=== PATIENT | female | born 1970 | race American Indian/Alaskan Native ===

== ENCOUNTER 2021-05-03 20:01 | Emergency (ER) | payer MEDICAID ==
[2021-05-04] MEDS ORDERED: KETOROLAC 60 MG/2 ML INJ IM STA (00:10)
--- NOTE | 2021-05-04 01:07 | Emergency Department Report ---
ED General Adult HPI - General Chief complaint: Extremity Problem,Nontraumatic Stated complaint: RT ARM PAIN PUI?: No Time Seen by Provider: 05/04/21 00:10 Source: patient Mode of arrival: Ambulatory Limitations: No Limitations - History of Present Illness Initial comments: 50-year-old female presents to the emergency department complaining of a 2 to 3-day history of atraumatic progressively worsening right arm/shoulder pain which started after she had woken up. She initially thought she may have slept on her shoulder wrong but Tylenol and Motrin did not resolve the symptoms and symptoms began to worsen with various movement and range of motion. Reports no discoloration, numbness or tingling no fever chills or sweats. -: days(s) (2) Location: upper extremity (Right shoulder) Radiation: non-radiation Severity scale (0 -10): 10 Quality: aching, dull Consistency: constant Improves with: none Worsens with: movement Associated Symptoms: denies: chest pain, cough, diaphoresis, loss of appetite, nausea/vomiting, shortness of breath, syncope, weakness Treatments Prior to Arrival: none - Related Data Home Medications Medication Instructions Recorded Confirmed Last Taken Insulin Glargine,Hum.rec.anlog 5 unit SQ QHS 12/03/13 12/03/13 12/02/13 22:00 [Lantus Solostar] Lisinopril/Hydrochlorothiazide 1 tab PO QDAY 12/03/13 12/03/13 12/02/13 22:00 [Zestoretic 20-12.5 mg] Metformin HCl [Fortamet] 1,000 mg PO BID 12/03/13 12/03/13 12/02/13 22:00 Previous Rx's Medication Instructions Recorded Last Taken Type HYDROcodone/APAP 10-325 [Delmar 1 each PO Q6HR PRN #20 tablet 12/03/13 Unknown Rx 10-325 mg TAB] diazePAM TAB [Valium] 5 mg PO Q8H PRN #21 tab 12/03/13 Unknown Rx Ciprofloxacin HCl [Ciprofloxacin 500 mg PO BID #10 tablet 08/28/16 Unknown Rx TAB] Ketorolac [Toradol] 10 mg PO Q6H PRN #15 tablet 05/04/21 Unknown Rx Allergies Allergy/AdvReac Type Severity Reaction Status Date / Time No Known Allergies Allergy Verified 08/28/16 12:09 ED Review of Systems ROS: Stated complaint: RT ARM PAIN Other details as noted in HPI ED Past Medical Hx - Past Medical History Previous Medical History?: Yes Hx Hypertension: Yes Hx Diabetes: Yes - Surgical History Past Surgical History?: Yes Additional Surgical History: csection - Social History Smoking Status: Never Smoker Substance Use Type: None - Medications Home Medications: Home Medications Medication Instructions Recorded Confirmed Last Taken Type HYDROcodone/APAP 10-325 [Delmar 1 each PO Q6HR PRN #20 tablet 12/03/13 Unknown Rx 10-325 mg TAB] Insulin Glargine,Hum.rec.anlog 5 unit SQ QHS 12/03/13 12/03/13 12/02/13 22:00 History [Lantus Solostar] Lisinopril/Hydrochlorothiazide 1 tab PO QDAY 12/03/13 12/03/13 12/02/13 22:00 History [Zestoretic 20-12.5 mg] Metformin HCl [Fortamet] 1,000 mg PO BID 12/03/13 12/03/13 12/02/13 22:00 History diazePAM TAB [Valium] 5 mg PO Q8H PRN #21 tab 12/03/13 Unknown Rx Ciprofloxacin HCl [Ciprofloxacin 500 mg PO BID #10 tablet 08/28/16 Unknown Rx TAB] Ketorolac [Toradol] 10 mg PO Q6H PRN #15 tablet 05/04/21 Unknown Rx ED Physical Exam - General Limitations: No Limitations ED Course Vital Signs 05/03/21 05/04/21 05/04/21 22:37 00:20 00:50 Temperature 98.1 F Pulse Rate 69 Respiratory 12 18 18 Rate Blood Pressure 141/64 Blood Pressure [Left] O2 Sat by Pulse 100 Oximetry 05/04/21 01:15 Temperature 97.8 F Pulse Rate 68 Respiratory 18 Rate Blood Pressure Blood Pressure 137/76 [Left] O2 Sat by Pulse 99 Oximetry Critical care attestation.: If time is entered above; I have spent that time in minutes in the direct care of this critically ill patient, excluding procedure time. ED Disposition Clinical Impression: Shoulder pain Disposition: TO HOME OR SELFCARE Is pt being admited?: No Does the pt Need Aspirin: No Condition: Undetermined Instructions: Rotator Cuff Tendinitis, Shoulder Pain, How to Use Cold Therapy, Shoulder Impingement Syndrome, Joint Pain Additional Instructions: Please sure to follow-up with orthopedic as we discussed for evaluate for further evaluation of the shoulder and definitive treatment options. The sling is to help with stabilization of the shoulder and the pain pain medication is to increase your comfort with the shoulder injury/disorder until definitive treatment can be rendered by the orthopedic as we discussed Prescriptions: Ketorolac [Toradol] 10 mg PO Q6H PRN #15 tablet PRN Reason: Pain Referrals: PRIMARY CAREMD [Primary Care Provider] - 3-5 Days TOÑO GRAVES MD [Staff Physician] - 3-5 Days
[2021-05-04 01:17] VITALS: BP 137/76
== END 2021-05-04 01:15 | disposition home or self-care (01) ==
LOC: ED 20:01
DX: M25.511 Pain in right shoulder (principal); I10 Essential (primary) hypertension; E11.9 Type 2 diabetes mellitus without complications; Z98.890 Other specified postprocedural states; Z79.1 Long term (current) use of non-steroidal anti-inflammatories (NSAID); Z79.4 Long term (current) use of insulin; Z79.899 Other long term (current) drug therapy
CPT/HCPCS: 96372; 99283; J1885